=== PATIENT | male | born 1965 | race Two or more races ===

== ENCOUNTER 2021-05-02 10:26 | Inpatient (IN) | payer MEDICAID, OTHER ==
[~2021-05-02] VITALS: Ht 167.6 cm; Wt 76.2 kg
[2021-05-02 11:28] LABS: Basophils # (auto) 0 10 ^3/uL (0-0.2); Basophils % (auto) 0.1 % (0.0-2.0); Eosinophils # (auto) 0 10 ^3/uL (0-0.8); Eosinophils % (auto) 0.1 % (0.0-7.0); Hematocrit 39.7 % (41.0-53.0); Hemoglobin 13.5 g/dL (13.5-17.5); Lymphocytes # (auto) 0.6 10 ^3/uL (0.4-5.4); Lymphocytes % (auto) 7.2 % (10.0-50.0); Mean Corpuscular Hemoglobin 31.8 pg (28.0-32.0); Mean Corpuscular Hgb Conc. 34.1 g/dL (32.0-36.0); Mean Corpuscular Volume 93.4 fL (80.0-100.0); Monocytes # (auto) 0.4 10 ^3/uL (0-1.3); Monocytes % (auto) 5.1 % (0.0-12.0); Neutrophils # (auto) 7.4 10 ^3/uL (1.6-8.6); Neutrophils % (auto) 87.5 % (37.0-80.0); Nucleated Red Blood Cells % 0.1 %; Red Blood Cells 4.24 10^6/uL (4.5-5.90); Red Cell Distribution Width 12.8 % (11.8-14.3); White Blood Cell 8.4 10^3/uL (4.4-10.8)
[2021-05-02 11:37] LABS: Lactic Acid w/Reflex 2.3 mmol/L (0.4-2.0)
[2021-05-02] MEDS ORDERED: CHOLECALCIFEROL (VITD3) 2,000 UNIT CAP/TAB PO ONE (14:00)
[2021-05-02] MEDS ORDERED: DexAMETHasone SOD PHOS 10MG/1ML VIAL INJ IV ONE (14:00)
[2021-05-02] MEDS ORDERED: ASCORBIC ACID 500 MG TAB PO ONE (14:00)
[2021-05-02] MEDS ORDERED: AZITHROMYCIN 500MG/ 250ML 250 ML IV ONE (14:00)
[2021-05-02] MEDS ORDERED: ZINC SULFATE 220mg CAP or TAB PO ONE (14:00)
[2021-05-02] MEDS ORDERED: cefTRIAXone 1GM/50ML D5W 50 ML IV ONE (14:00)
[2021-05-02] MEDS ORDERED: MORPHINE SULFATE INJECTION 2 MG/ML SYRG IV PRN (14:15)
[2021-05-02] MEDS ORDERED: NITROGLYCERIN 0.4 MG SL TAB SL PRN (14:15)
[2021-05-02 14:20] LABS: Albumin 2.2 g/dL (3.4-5.0); Anion Gap 11 (5-15); Blood Urea Nitrogen 27 mg/dL (7-18); Calcium 8.1 mg/dL (8.5-10.1); Carbon Dioxide 21 mmol/L (21-32); Chloride 99 mmol/L (98-107); Potassium 4.5 mmol/L (3.5-5.1); Sodium 131 mmol/L (136-145)
[2021-05-02 14:22] LABS: Alanine Aminotransferase 33 U/L (16-61); Aspartate Aminotransferase 29 U/L (15-37); BUN/Creatinine Ratio 20.3; GFR African American 71 mL/min; GFR Non-African American 59 mL/min
[2021-05-02 14:27] LABS: Alkaline Phosphatase 95 U/L (45-117); Bilirubin, Total 0.6 mg/dL (0.2-1.0); Total Protein 7.4 g/dL (6.4-8.2)
[2021-05-02 14:32] LABS: Glucose 441 mg/dL (74-106)
[2021-05-02] MEDS ORDERED: DEXTROSE (50%) 50ML SYRG IV PRN (14:45)
[2021-05-02] MEDS ORDERED: PROMETHAZINE HCL 25 MG/ML 1ML IV PRN (14:45)
[2021-05-02] MEDS ORDERED: INSULIN LANTUS (GLARGINE) 1 /0.01ml (100units/ml) SC ONE (14:45)
[2021-05-02] MEDS ORDERED: LACTULOSE 20Gm/30ML SOLN PO PRN (14:45)
[2021-05-02] MEDS ORDERED: traMADol HCL 50 MG TAB PO PRN (14:45)
[2021-05-02] MEDS: SODIUM CHLORIDE 0.9% 1,000 ML IV SCH (16:55)
[2021-05-02] MEDS: InsuLIN REG 1unit/0.01ml Soln (100units/ml) SC SCH ×3 (17:07→23:29)
[2021-05-02] MEDS: ACCU-CHEK COMFORT CURVE STRIP VI SCH ×3 (17:09→23:28)
[2021-05-02] MEDS ORDERED: LABETALOL HCL 5 MG/ML 4ML SYRINGE IV ONE (17:15)
[2021-05-02 19:19] LABS: Urine Bacteria NONE SEEN /hpf (None Seen); Urine Blood Negative /uL (Negative); Urine Specific Gravity 1.037 (1.001-1.035); Urine WBC 1 /hpf (0 - 3)
[2021-05-02] MEDS: BUDESONIDE (INHALATION) 180 MCG IH IN SCH (22:00)
[2021-05-02] MEDS: FLORASTOR (S. BOULARDII) 250 MG CAP PO SCH (23:27)
[2021-05-02] MEDS: INSULIN LANTUS (GLARGINE) 1 /0.01ml (100units/ml) SC SCH (23:27)
[2021-05-02] MEDS: ENOXAPARIN SOD 40 MG/0.4 ML SYRINGE SC SCH (23:28)
[2021-05-02 23:31] VITALS: BP 135/80
[2021-05-03 00:05] VITALS: BP 149/98
[2021-05-03] MEDS ORDERED: PNEUMOCOCCAL VACC POLYS 25 MCG/0.5 ML VIAL IM ONE (00:30)
[2021-05-03] MEDS ORDERED: INFLUENZA QUAD 2020-2021 0.5 ML SYRG IM ONE (00:30)
[2021-05-03] MEDS: ACCU-CHEK COMFORT CURVE STRIP VI SCH ×6 (04:03→22:51)
[2021-05-03] MEDS: InsuLIN REG 1unit/0.01ml Soln (100units/ml) SC SCH ×6 (04:04→22:52)
[2021-05-03] MEDS: SODIUM CHLORIDE 0.9% 1,000 ML IV SCH (04:25)
[2021-05-03] MEDS: hydrALAZINE HCL 20 MG/ML VL IV PRN ×3 (04:59→22:53)
[2021-05-03 05:35] VITALS: BP 173/107
[2021-05-03 06:14] LABS: Basophils # (auto) 0 10 ^3/uL (0-0.2); Basophils % (auto) 0.4 % (0.0-2.0); Eosinophils # (auto) 0 10 ^3/uL (0-0.8); Eosinophils % (auto) 0.1 % (0.0-7.0); Hemoglobin 14.2 g/dL (13.5-17.5); Lymphocytes # (auto) 0.6 10 ^3/uL (0.4-5.4); Lymphocytes % (auto) 10.2 % (10.0-50.0); Mean Corpuscular Hemoglobin 32.5 pg (28.0-32.0); Mean Corpuscular Hgb Conc. 34.6 g/dL (32.0-36.0); Mean Corpuscular Volume 93.7 fL (80.0-100.0); Monocytes # (auto) 0.3 10 ^3/uL (0-1.3); Monocytes % (auto) 5.8 % (0.0-12.0); Neutrophils # (auto) 4.7 10 ^3/uL (1.6-8.6); Neutrophils % (auto) 83.5 % (37.0-80.0); Red Blood Cells 4.38 10^6/uL (4.5-5.90); Red Cell Distribution Width 13.1 % (11.8-14.3); White Blood Cell 5.6 10^3/uL (4.4-10.8)
[2021-05-03 06:29] LABS: Potassium 4.1 mmol/L (3.5-5.1)
[2021-05-03 06:37] LABS: Albumin 2.3 g/dL (3.4-5.0); BUN/Creatinine Ratio 25.7; Bilirubin, Total 0.5 mg/dL (0.2-1.0); Calcium 8.5 mg/dL (8.5-10.1); Total Protein 7.6 g/dL (6.4-8.2)
[2021-05-03] MEDS: DexAMETHasone SOD PHOS 10MG/1ML VIAL INJ IV SCH (08:27)
[2021-05-03] MEDS: cefTRIAXone 1GM/50ML D5W 50 ML IV SCH (08:27)
[2021-05-03] MEDS: ZINC SULFATE 220mg CAP or TAB PO SCH (08:28)
[2021-05-03] MEDS: AZITHROMYCIN 500MG/ 250ML 250 ML IV SCH (08:28)
[2021-05-03] MEDS: FLORASTOR (S. BOULARDII) 250 MG CAP PO SCH ×2 (08:28→22:48)
[2021-05-03] MEDS: ASCORBIC ACID 1,000 MG TAB PO SCH (08:29)
[2021-05-03] MEDS: ENOXAPARIN SOD 40 MG/0.4 ML SYRINGE SC SCH ×2 (08:29→22:48)
[2021-05-03] MEDS: CHOLECALCIFEROL (VITD3) 2,000 UNIT CAP/TAB PO SCH (08:29)
[2021-05-03] MEDS: INSULIN LANTUS (GLARGINE) 1 /0.01ml (100units/ml) SC SCH ×2 (08:39→22:51)
[2021-05-03 10:23] VITALS: BP 140/82
[2021-05-03] MEDS: BUDESONIDE (INHALATION) 180 MCG IH IN SCH ×2 (11:20→21:51)
[2021-05-03] MEDS: ALBUTEROL SULF HFA 90MCG INH 200DOSE IN PRN ×2 (11:20→21:51)
[2021-05-03 13:05] VITALS: BP 142/92
[2021-05-03] MEDS ORDERED: REMDESIVIR PER PHARMACY 0 ML IV SCH (16:00)
[2021-05-03] MEDS ORDERED: REMDESIVIR 200 MG in NS 210ml LOADING DOSE ADULT IV ONE (17:00)
[2021-05-03 22:00] VITALS: BP 162/94
[2021-05-04] MEDS: ACCU-CHEK COMFORT CURVE STRIP VI SCH ×6 (04:12→23:09)
[2021-05-04] MEDS: InsuLIN REG 1unit/0.01ml Soln (100units/ml) SC SCH ×6 (04:14→23:13)
[2021-05-04 04:51] VITALS: BP 125/78
[2021-05-04 05:20] VITALS: BP 125/78
[2021-05-04 05:55] LABS: Basophils # (auto) 0 10 ^3/uL (0-0.2); Basophils % (auto) 0.1 % (0.0-2.0); Eosinophils # (auto) 0 10 ^3/uL (0-0.8); Hematocrit 37.7 % (41.0-53.0); Hemoglobin 13.3 g/dL (13.5-17.5); Lymphocytes # (auto) 0.6 10 ^3/uL (0.4-5.4); Lymphocytes % (auto) 6.4 % (10.0-50.0); Mean Corpuscular Hemoglobin 32.8 pg (28.0-32.0); Mean Corpuscular Hgb Conc. 35.3 g/dL (32.0-36.0); Mean Corpuscular Volume 92.9 fL (80.0-100.0); Monocytes # (auto) 0.5 10 ^3/uL (0-1.3); Monocytes % (auto) 5.4 % (0.0-12.0); Neutrophils # (auto) 8.5 10 ^3/uL (1.6-8.6); Neutrophils % (auto) 88.1 % (37.0-80.0); Nucleated Red Blood Cells % 0.1 %; Red Blood Cells 4.05 10^6/uL (4.5-5.90); Red Cell Distribution Width 12.8 % (11.8-14.3); White Blood Cell 9.7 10^3/uL (4.4-10.8)
[2021-05-04] MEDS: ALBUTEROL SULF HFA 90MCG INH 200DOSE IN PRN ×2 (06:25→20:14)
[2021-05-04] MEDS: BUDESONIDE (INHALATION) 180 MCG IH IN SCH ×2 (06:25→20:14)
[2021-05-04 06:42] LABS: Chloride 109 mmol/L (98-107); Potassium 3.9 mmol/L (3.5-5.1); Sodium 138 mmol/L (136-145)
[2021-05-04 06:46] LABS: Alanine Aminotransferase 33 U/L (16-61); Anion Gap 9 (5-15); Aspartate Aminotransferase 30 U/L (15-37); BUN/Creatinine Ratio 27.1; Blood Urea Nitrogen 26 mg/dL (7-18); Calcium 8.2 mg/dL (8.5-10.1); Carbon Dioxide 20 mmol/L (21-32); GFR African American 104 mL/min; GFR Non-African American 86 mL/min; Glucose 135 mg/dL (74-106)
[2021-05-04 06:49] LABS: Alkaline Phosphatase 89 U/L (45-117); Bilirubin, Total 0.3 mg/dL (0.2-1.0); Total Protein 6.8 g/dL (6.4-8.2)
[2021-05-04] MEDS: INSULIN LANTUS (GLARGINE) 1 /0.01ml (100units/ml) SC SCH ×2 (08:00→23:09)
[2021-05-04] MEDS: AZITHROMYCIN 500MG/ 250ML 250 ML IV SCH (08:06)
[2021-05-04] MEDS: DexAMETHasone SOD PHOS 10MG/1ML VIAL INJ IV SCH (08:06)
[2021-05-04] MEDS: cefTRIAXone 1GM/50ML D5W 50 ML IV SCH (08:06)
[2021-05-04] MEDS: ASCORBIC ACID 1,000 MG TAB PO SCH (08:07)
[2021-05-04] MEDS: ZINC SULFATE 220mg CAP or TAB PO SCH (08:07)
[2021-05-04] MEDS: FLORASTOR (S. BOULARDII) 250 MG CAP PO SCH ×2 (08:07→22:05)
[2021-05-04] MEDS: CHOLECALCIFEROL (VITD3) 2,000 UNIT CAP/TAB PO SCH (08:08)
[2021-05-04] MEDS: ENOXAPARIN SOD 40 MG/0.4 ML SYRINGE SC SCH ×2 (08:08→22:16)
[2021-05-04 09:00] VITALS: BP 149/88
[2021-05-04 13:00] VITALS: BP 154/95
[2021-05-04] MEDS: hydrALAZINE HCL 20 MG/ML VL IV PRN (15:18)
[2021-05-04] MEDS: REMDESIVIR 100mg 100 MG in SODIUM CHL 0.9% 230 ML IV SCH (16:53)
[2021-05-04 17:00] VITALS: BP 149/99
[2021-05-04] MEDS ORDERED: METOPROLOL TARTRATE 25 MG TAB PO ONE (18:00)
[2021-05-04 22:00] VITALS: BP 120/73
[2021-05-04] MEDS: ACETAMINOPHEN 500 MG TAB PO PRN (22:15)
[2021-05-04] MEDS: METOPROLOL TARTRATE 25 MG TAB PO SCH (22:17)
[2021-05-05] MEDS: ACCU-CHEK COMFORT CURVE STRIP VI SCH ×6 (04:00→23:13)
[2021-05-05] MEDS: InsuLIN REG 1unit/0.01ml Soln (100units/ml) SC SCH ×6 (04:00→23:11)
[2021-05-05 05:31] VITALS: BP 146/88
[2021-05-05] MEDS: ALBUTEROL SULF HFA 90MCG INH 200DOSE IN PRN ×2 (06:24→21:09)
[2021-05-05] MEDS: BUDESONIDE (INHALATION) 180 MCG IH IN SCH ×2 (06:24→21:09)
[2021-05-05] MEDS: ACETAMINOPHEN 500 MG TAB PO PRN ×2 (07:00→22:01)
[2021-05-05 07:10] LABS: Potassium 3.5 mmol/L (3.5-5.1)
[2021-05-05 07:14] LABS: Calcium 8.5 mg/dL (8.5-10.1)
[2021-05-05 07:21] LABS: Bilirubin, Total 0.4 mg/dL (0.2-1.0); Total Protein 6.5 g/dL (6.4-8.2)
[2021-05-05] MEDS: INSULIN LANTUS (GLARGINE) 1 /0.01ml (100units/ml) SC SCH ×2 (07:51→23:10)
[2021-05-05] MEDS: AZITHROMYCIN 500MG/ 250ML 250 ML IV SCH (07:59)
[2021-05-05] MEDS: cefTRIAXone 1GM/50ML D5W 50 ML IV SCH (07:59)
[2021-05-05] MEDS: DexAMETHasone SOD PHOS 10MG/1ML VIAL INJ IV SCH (07:59)
[2021-05-05] MEDS: CHOLECALCIFEROL (VITD3) 2,000 UNIT CAP/TAB PO SCH (08:00)
[2021-05-05] MEDS: ASCORBIC ACID 1,000 MG TAB PO SCH (08:00)
[2021-05-05] MEDS: ZINC SULFATE 220mg CAP or TAB PO SCH (08:00)
[2021-05-05] MEDS: FLORASTOR (S. BOULARDII) 250 MG CAP PO SCH ×2 (08:00→21:57)
[2021-05-05] MEDS: ENOXAPARIN SOD 40 MG/0.4 ML SYRINGE SC SCH ×2 (08:01→21:57)
[2021-05-05] MEDS: METOPROLOL TARTRATE 25 MG TAB PO SCH ×2 (08:16→22:00)
[2021-05-05 09:00] VITALS: BP 139/95
[2021-05-05] MEDS ORDERED: FUROSEMIDE 20 MG/2 ML VIAL IV ONE (12:45)
[2021-05-05] MEDS ORDERED: POTASSIUM CHL 20 Meq TABLET PO ONE (12:45)
[2021-05-05 13:00] VITALS: BP 167/91
[2021-05-05] MEDS: hydrALAZINE HCL 20 MG/ML VL IV PRN (14:49)
[2021-05-05] MEDS: REMDESIVIR 100mg 100 MG in SODIUM CHL 0.9% 230 ML IV SCH (15:21)
[2021-05-05 16:30] VITALS: BP 160/88
[2021-05-05] MEDS: FAMOTIDINE 20 MG TAB PO SCH (21:57)
[2021-05-05 22:00] VITALS: BP 122/65
[2021-05-06] MEDS: InsuLIN REG 1unit/0.01ml Soln (100units/ml) SC SCH ×5 (04:00→23:00)
[2021-05-06] MEDS: ACCU-CHEK COMFORT CURVE STRIP VI SCH ×5 (04:00→23:00)
[2021-05-06 05:00] VITALS: BP 153/95
[2021-05-06 05:40] LABS: Basophils # (auto) 0 10 ^3/uL (0-0.2); Basophils % (auto) 0.1 % (0.0-2.0); Eosinophils # (auto) 0 10 ^3/uL (0-0.8); Eosinophils % (auto) 0.3 % (0.0-7.0); Hematocrit 42.2 % (41.0-53.0); Hemoglobin 14.7 g/dL (13.5-17.5); Lymphocytes # (auto) 0.9 10 ^3/uL (0.4-5.4); Lymphocytes % (auto) 9.5 % (10.0-50.0); Mean Corpuscular Hemoglobin 32.6 pg (28.0-32.0); Mean Corpuscular Hgb Conc. 34.9 g/dL (32.0-36.0); Mean Corpuscular Volume 93.5 fL (80.0-100.0); Monocytes # (auto) 0.5 10 ^3/uL (0-1.3); Monocytes % (auto) 5.3 % (0.0-12.0); Neutrophils # (auto) 8.3 10 ^3/uL (1.6-8.6); Neutrophils % (auto) 84.8 % (37.0-80.0); Nucleated Red Blood Cells % 0.1 %; Red Blood Cells 4.51 10^6/uL (4.5-5.90); Red Cell Distribution Width 13.1 % (11.8-14.3); White Blood Cell 9.8 10^3/uL (4.4-10.8)
[2021-05-06 05:53] LABS: Lactic Acid w/Reflex 4.6 mmol/L (0.4-2.0)
[2021-05-06 06:05] LABS: INR 1.1 (0.9-1.15)
[2021-05-06] MEDS: BUDESONIDE (INHALATION) 180 MCG IH IN SCH ×2 (06:05→21:19)
[2021-05-06] MEDS: ALBUTEROL SULF HFA 90MCG INH 200DOSE IN PRN ×2 (06:05→21:19)
[2021-05-06 06:20] LABS: Albumin 2.3 g/dL (3.4-5.0); BUN/Creatinine Ratio 22.3; Bilirubin, Total 0.4 mg/dL (0.2-1.0); CRP High Sensitivity 2.93 mg/dL (< 0.3); Calcium 8.6 mg/dL (8.5-10.1); Magnesium 2.5 mg/dL (1.6-2.6); Total Protein 6.7 g/dL (6.4-8.2)
[2021-05-06 06:21] LABS: Cholesterol 127 mg/dL (< 200); HDL Cholesterol 26 mg/dL (40-59); LDL Cholesterol 87 mg/dL (< 100); Triglycerides 80 mg/dL (< 150)
[2021-05-06 09:00] VITALS: BP 156/88
[2021-05-06] MEDS: DexAMETHasone SOD PHOS 10MG/1ML VIAL INJ IV SCH (10:10)
[2021-05-06] MEDS: cefTRIAXone 1GM/50ML D5W 50 ML IV SCH (10:10)
[2021-05-06] MEDS: FUROSEMIDE 20 MG/2 ML VIAL IV SCH (10:11)
[2021-05-06] MEDS: ENOXAPARIN SOD 40 MG/0.4 ML SYRINGE SC SCH ×2 (10:12→22:00)
[2021-05-06] MEDS: INSULIN LANTUS (GLARGINE) 1 /0.01ml (100units/ml) SC SCH (10:12)
[2021-05-06] MEDS: FLORASTOR (S. BOULARDII) 250 MG CAP PO SCH ×2 (10:13→23:53)
[2021-05-06] MEDS: ZINC SULFATE 220mg CAP or TAB PO SCH (10:13)
[2021-05-06] MEDS: ASCORBIC ACID 1,000 MG TAB PO SCH (10:13)
[2021-05-06] MEDS: POTASSIUM CHL 10 Meq TABLET PO SCH (10:13)
[2021-05-06] MEDS: METOPROLOL TARTRATE 25 MG TAB PO SCH ×2 (10:14→23:53)
[2021-05-06] MEDS: FAMOTIDINE 20 MG TAB PO SCH ×2 (10:14→23:53)
[2021-05-06] MEDS: CHOLECALCIFEROL (VITD3) 2,000 UNIT CAP/TAB PO SCH (10:15)
[2021-05-06] MEDS: ACETAMINOPHEN 500 MG TAB PO PRN (10:16)
[2021-05-06] MEDS: AZITHROMYCIN 500MG/ 250ML 250 ML IV SCH (11:00)
[2021-05-06 13:00] VITALS: BP 136/93
[2021-05-06] MEDS: REMDESIVIR 100mg 100 MG in SODIUM CHL 0.9% 230 ML IV SCH (15:15)
[2021-05-06] MEDS ORDERED: DEXTROSE (50%) 50ML SYRG IV PRN (16:15)
[2021-05-06] MEDS ORDERED: IOHEXOL 350 MG/ML 100ML IJ ONE ×2 (16:21→18:44)
[2021-05-06 17:03] VITALS: BP 142/91
[2021-05-06 22:00] VITALS: BP 120/71
[2021-05-06] MEDS ORDERED: TOCILIZUMAB 400 MG in SODIUM CHL 0.9% 80 ML IV SCH (22:00)
[2021-05-07] MEDS: ACETAMINOPHEN 500 MG TAB PO PRN (03:15)
[2021-05-07 05:00] VITALS: BP 107/69
[2021-05-07] MEDS: InsuLIN REG 1unit/0.01ml Soln (100units/ml) SC SCH ×4 (06:53→22:07)
[2021-05-07] MEDS: ACCU-CHEK COMFORT CURVE STRIP VI SCH ×4 (06:53→21:50)
[2021-05-07 07:24] LABS: Albumin 2.1 g/dL (3.4-5.0); BUN/Creatinine Ratio 30.2; Bilirubin, Total 0.4 mg/dL (0.2-1.0); CRP High Sensitivity 5.59 mg/dL (< 0.3); Calcium 8.4 mg/dL (8.5-10.1); Total Protein 6.5 g/dL (6.4-8.2)
[2021-05-07 08:54] VITALS: BP 126/76
[2021-05-07] MEDS: ALBUTEROL SULF HFA 90MCG INH 200DOSE IN PRN ×2 (09:47→20:10)
[2021-05-07] MEDS: BUDESONIDE (INHALATION) 180 MCG IH IN SCH ×2 (09:47→19:15)
[2021-05-07] MEDS: POTASSIUM CHL 10 Meq TABLET PO SCH (10:00)
[2021-05-07] MEDS: cefTRIAXone 1GM/50ML D5W 50 ML IV SCH (10:24)
[2021-05-07] MEDS: DexAMETHasone SOD PHOS 10MG/1ML VIAL INJ IV SCH (10:25)
[2021-05-07] MEDS: FUROSEMIDE 20 MG/2 ML VIAL IV SCH (10:26)
[2021-05-07] MEDS: ZINC SULFATE 220mg CAP or TAB PO SCH (10:27)
[2021-05-07] MEDS: FLORASTOR (S. BOULARDII) 250 MG CAP PO SCH ×2 (10:27→21:50)
[2021-05-07] MEDS: FAMOTIDINE 20 MG TAB PO SCH ×2 (10:28→21:50)
[2021-05-07] MEDS: ASCORBIC ACID 1,000 MG TAB PO SCH (10:28)
[2021-05-07] MEDS: CHOLECALCIFEROL (VITD3) 2,000 UNIT CAP/TAB PO SCH (10:28)
[2021-05-07] MEDS: METOPROLOL TARTRATE 25 MG TAB PO SCH ×2 (10:34→22:05)
[2021-05-07] MEDS: ENOXAPARIN SOD 40 MG/0.4 ML SYRINGE SC SCH ×2 (10:35→21:50)
[2021-05-07] MEDS: AZITHROMYCIN 500MG/ 250ML 250 ML IV SCH (11:37)
[2021-05-07] MEDS ORDERED: InsuLIN REG 1unit/0.01ml Soln (100units/ml) SC ONE (12:15)
[2021-05-07 13:00] VITALS: BP 113/78
[2021-05-07] MEDS: REMDESIVIR 100mg 100 MG in SODIUM CHL 0.9% 230 ML IV SCH (15:39)
[2021-05-07 17:00] VITALS: BP 133/94
[2021-05-07 22:00] VITALS: BP 134/72
[2021-05-07] MEDS ORDERED: INSULIN LANTUS (GLARGINE) 1 /0.01ml (100units/ml) SC SCH ×2 (22:00)
[2021-05-08 05:00] VITALS: BP 107/67
[2021-05-08 06:02] LABS: Basophils # (auto) 0 10 ^3/uL (0-0.2); Basophils % (auto) 0.1 % (0.0-2.0); Eosinophils # (auto) 0 10 ^3/uL (0-0.8); Eosinophils % (auto) 0.4 % (0.0-7.0); Hematocrit 39.1 % (41.0-53.0); Hemoglobin 14.2 g/dL (13.5-17.5); Lymphocytes # (auto) 1.4 10 ^3/uL (0.4-5.4); Lymphocytes % (auto) 11.8 % (10.0-50.0); Mean Corpuscular Hemoglobin 33.1 pg (28.0-32.0); Mean Corpuscular Hgb Conc. 36.3 g/dL (32.0-36.0); Mean Corpuscular Volume 91.2 fL (80.0-100.0); Monocytes # (auto) 0.6 10 ^3/uL (0-1.3); Monocytes % (auto) 5.2 % (0.0-12.0); Neutrophils # (auto) 9.9 10 ^3/uL (1.6-8.6); Neutrophils % (auto) 82.5 % (37.0-80.0); Nucleated Red Blood Cells % 0.1 %; Red Blood Cells 4.28 10^6/uL (4.5-5.90); Red Cell Distribution Width 12.8 % (11.8-14.3)
[2021-05-08 06:09] LABS: BUN/Creatinine Ratio 37.8; Bilirubin, Total 0.4 mg/dL (0.2-1.0); CRP High Sensitivity 5.9 mg/dL (< 0.3); Calcium 8.6 mg/dL (8.5-10.1); Magnesium 2.4 mg/dL (1.6-2.6); Total Protein 6.6 g/dL (6.4-8.2)
[2021-05-08] MEDS: ALBUTEROL SULF HFA 90MCG INH 200DOSE IN PRN (06:46)
[2021-05-08] MEDS: BUDESONIDE (INHALATION) 180 MCG IH IN SCH ×2 (06:46→21:40)
[2021-05-08] MEDS: InsuLIN REG 1unit/0.01ml Soln (100units/ml) SC SCH ×4 (07:00→22:30)
[2021-05-08] MEDS: ACCU-CHEK COMFORT CURVE STRIP VI SCH ×4 (08:43→21:59)
[2021-05-08 09:00] VITALS: BP 121/70
[2021-05-08] MEDS: cefTRIAXone 1GM/50ML D5W 50 ML IV SCH (09:49)
[2021-05-08] MEDS: DexAMETHasone SOD PHOS 10MG/1ML VIAL INJ IV SCH (09:49)
[2021-05-08] MEDS: FUROSEMIDE 20 MG/2 ML VIAL IV SCH (09:49)
[2021-05-08] MEDS: CHOLECALCIFEROL (VITD3) 2,000 UNIT CAP/TAB PO SCH (09:50)
[2021-05-08] MEDS: METOPROLOL TARTRATE 25 MG TAB PO SCH ×2 (09:50→21:58)
[2021-05-08] MEDS: FLORASTOR (S. BOULARDII) 250 MG CAP PO SCH ×2 (09:50→21:57)
[2021-05-08] MEDS: ASCORBIC ACID 1,000 MG TAB PO SCH (09:50)
[2021-05-08] MEDS: FAMOTIDINE 20 MG TAB PO SCH ×2 (09:50→21:57)
[2021-05-08] MEDS: ZINC SULFATE 220mg CAP or TAB PO SCH (09:50)
[2021-05-08] MEDS: POTASSIUM CHL 10 Meq TABLET PO SCH (09:51)
[2021-05-08] MEDS: ENOXAPARIN SOD 40 MG/0.4 ML SYRINGE SC SCH ×2 (09:51→21:59)
[2021-05-08 13:00] VITALS: BP 132/86
[2021-05-08] MEDS ORDERED: TOCILIZUMAB 400 MG in SODIUM CHL 0.9% 80 ML IV ONE (15:00)
[2021-05-08 16:53] VITALS: BP 121/81
[2021-05-08 22:00] VITALS: BP 132/74
[2021-05-09 05:00] VITALS: BP 102/48
[2021-05-09] MEDS: InsuLIN REG 1unit/0.01ml Soln (100units/ml) SC SCH ×4 (06:25→20:18)
[2021-05-09] MEDS: ACCU-CHEK COMFORT CURVE STRIP VI SCH ×4 (06:25→20:17)
[2021-05-09] MEDS: INSULIN LANTUS (GLARGINE) 1 /0.01ml (100units/ml) SC SCH (06:32)
[2021-05-09] MEDS: ALBUTEROL SULF HFA 90MCG INH 200DOSE IN PRN ×2 (06:39→22:40)
[2021-05-09] MEDS: BUDESONIDE (INHALATION) 180 MCG IH IN SCH ×2 (06:39→22:00)
[2021-05-09 06:57] LABS: Basophils # (auto) 0 10 ^3/uL (0-0.2); Basophils % (auto) 0.3 % (0.0-2.0); Eosinophils # (auto) 0.1 10 ^3/uL (0-0.8); Eosinophils % (auto) 0.6 % (0.0-7.0); Hematocrit 40.1 % (41.0-53.0); Hemoglobin 13.9 g/dL (13.5-17.5); Lymphocytes % (auto) 9.7 % (10.0-50.0); Mean Corpuscular Hemoglobin 31.9 pg (28.0-32.0); Mean Corpuscular Hgb Conc. 34.7 g/dL (32.0-36.0); Mean Corpuscular Volume 91.8 fL (80.0-100.0); Monocytes # (auto) 0.5 10 ^3/uL (0-1.3); Monocytes % (auto) 4.6 % (0.0-12.0); Neutrophils # (auto) 8.5 10 ^3/uL (1.6-8.6); Neutrophils % (auto) 84.8 % (37.0-80.0); Red Blood Cells 4.37 10^6/uL (4.5-5.90); Red Cell Distribution Width 12.6 % (11.8-14.3); White Blood Cell 10.1 10^3/uL (4.4-10.8)
[2021-05-09 07:17] LABS: Albumin 2.1 g/dL (3.4-5.0); Calcium 8.7 mg/dL (8.5-10.1); Magnesium 2.3 mg/dL (1.6-2.6); Potassium 4.3 mmol/L (3.5-5.1)
[2021-05-09 07:29] LABS: BUN/Creatinine Ratio 34.1; Bilirubin, Total 0.4 mg/dL (0.2-1.0); CRP High Sensitivity 4.28 mg/dL (< 0.3); Total Protein 6.6 g/dL (6.4-8.2)
[2021-05-09 07:42] VITALS: BP 122/81
[2021-05-09 09:00] VITALS: BP_SYST 122; BP_SYST 128; BP_DIAS 75; BP_DIAS 81
[2021-05-09] MEDS: POTASSIUM CHL 10 Meq TABLET PO SCH (09:56)
[2021-05-09] MEDS: ZINC SULFATE 220mg CAP or TAB PO SCH (09:56)
[2021-05-09] MEDS: cefTRIAXone 1GM/50ML D5W 50 ML IV SCH (09:56)
[2021-05-09] MEDS: ASCORBIC ACID 1,000 MG TAB PO SCH (09:56)
[2021-05-09] MEDS: FAMOTIDINE 20 MG TAB PO SCH ×2 (09:56→22:00)
[2021-05-09] MEDS: FLORASTOR (S. BOULARDII) 250 MG CAP PO SCH ×2 (09:56→22:00)
[2021-05-09] MEDS: CHOLECALCIFEROL (VITD3) 2,000 UNIT CAP/TAB PO SCH (09:57)
[2021-05-09] MEDS: ENOXAPARIN SOD 40 MG/0.4 ML SYRINGE SC SCH ×2 (09:57→21:59)
[2021-05-09] MEDS ORDERED: TOCILIZUMAB 400 MG in SODIUM CHL 0.9% 80 ML IV ONE (10:00)
[2021-05-09] MEDS: METOPROLOL TARTRATE 25 MG TAB PO SCH ×2 (10:10→22:00)
[2021-05-09] MEDS: FUROSEMIDE 20 MG/2 ML VIAL IV SCH (10:11)
[2021-05-09] MEDS: DexAMETHasone SOD PHOS 10MG/1ML VIAL INJ IV SCH (12:00)
[2021-05-09 13:00] VITALS: BP 141/88
[2021-05-09 16:43] VITALS: BP 117/77
[2021-05-09] MEDS ORDERED: InsuLIN REG 1unit/0.01ml Soln (100units/ml) SC ONE (18:00)
[2021-05-09 22:00] VITALS: BP 100/69
[2021-05-10] MEDS: ACCU-CHEK COMFORT CURVE STRIP VI SCH ×7 (00:01→23:51)
[2021-05-10] MEDS: InsuLIN REG 1unit/0.01ml Soln (100units/ml) SC SCH ×7 (00:01→23:53)
[2021-05-10 05:00] VITALS: BP 109/85
[2021-05-10] MEDS: INSULIN LANTUS (GLARGINE) 1 /0.01ml (100units/ml) SC SCH (06:52)
[2021-05-10] MEDS: ACETAMINOPHEN 500 MG TAB PO PRN (06:55)
[2021-05-10 08:53] VITALS: BP 100/68
[2021-05-10] MEDS: cefTRIAXone 1GM/50ML D5W 50 ML IV SCH (09:18)
[2021-05-10] MEDS: DexAMETHasone SOD PHOS 10MG/1ML VIAL INJ IV SCH (09:18)
[2021-05-10] MEDS: ENOXAPARIN SOD 40 MG/0.4 ML SYRINGE SC SCH ×2 (09:18→21:33)
[2021-05-10] MEDS: ASCORBIC ACID 1,000 MG TAB PO SCH (09:19)
[2021-05-10] MEDS: FLORASTOR (S. BOULARDII) 250 MG CAP PO SCH ×2 (09:19→21:32)
[2021-05-10] MEDS: POTASSIUM CHL 10 Meq TABLET PO SCH (09:19)
[2021-05-10] MEDS: CHOLECALCIFEROL (VITD3) 2,000 UNIT CAP/TAB PO SCH (09:19)
[2021-05-10] MEDS: FAMOTIDINE 20 MG TAB PO SCH ×2 (09:20→21:33)
[2021-05-10] MEDS: ZINC SULFATE 220mg CAP or TAB PO SCH (09:20)
[2021-05-10] MEDS: METOPROLOL TARTRATE 25 MG TAB PO SCH ×2 (09:36→21:33)
[2021-05-10] MEDS: FUROSEMIDE 20 MG/2 ML VIAL IV SCH (09:36)
[2021-05-10] MEDS: ALBUTEROL SULF HFA 90MCG INH 200DOSE IN PRN ×2 (10:26→21:08)
[2021-05-10] MEDS: BUDESONIDE (INHALATION) 180 MCG IH IN SCH ×2 (10:26→21:08)
[2021-05-10 13:00] VITALS: BP 109/75
[2021-05-10 17:00] VITALS: BP 114/77
[2021-05-10] MEDS ORDERED: InsuLIN REG 1unit/0.01ml Soln (100units/ml) IV ONE (17:00)
[2021-05-10 21:38] VITALS: BP 117/75
[2021-05-11] MEDS: ACCU-CHEK COMFORT CURVE STRIP VI SCH ×5 (04:16→20:15)
[2021-05-11] MEDS: InsuLIN REG 1unit/0.01ml Soln (100units/ml) SC SCH ×5 (04:19→20:15)
[2021-05-11 04:55] VITALS: BP 123/89
[2021-05-11] MEDS: ALBUTEROL SULF HFA 90MCG INH 200DOSE IN PRN ×2 (06:28→20:25)
[2021-05-11] MEDS: BUDESONIDE (INHALATION) 180 MCG IH IN SCH ×2 (06:28→20:25)
[2021-05-11] MEDS: INSULIN LANTUS (GLARGINE) 1 /0.01ml (100units/ml) SC SCH (06:32)
[2021-05-11 09:00] VITALS: BP 115/78
[2021-05-11] MEDS: cefTRIAXone 1GM/50ML D5W 50 ML IV SCH (09:21)
[2021-05-11] MEDS: ZINC SULFATE 220mg CAP or TAB PO SCH (09:21)
[2021-05-11] MEDS: FLORASTOR (S. BOULARDII) 250 MG CAP PO SCH ×2 (09:22→21:35)
[2021-05-11] MEDS: POTASSIUM CHL 10 Meq TABLET PO SCH (09:22)
[2021-05-11] MEDS: FAMOTIDINE 20 MG TAB PO SCH ×2 (09:23→21:36)
[2021-05-11] MEDS: METOPROLOL TARTRATE 25 MG TAB PO SCH ×2 (09:23→21:35)
[2021-05-11] MEDS: ASCORBIC ACID 1,000 MG TAB PO SCH (09:23)
[2021-05-11] MEDS: CHOLECALCIFEROL (VITD3) 2,000 UNIT CAP/TAB PO SCH (09:24)
[2021-05-11] MEDS: ENOXAPARIN SOD 40 MG/0.4 ML SYRINGE SC SCH ×2 (09:24→21:36)
[2021-05-11] MEDS: FUROSEMIDE 20 MG/2 ML VIAL IV SCH (09:33)
[2021-05-11] MEDS ORDERED: DexAMETHasone SOD PHOS 10MG/1ML VIAL INJ IV ONE (10:30)
[2021-05-11 13:00] VITALS: BP 92/71
[2021-05-11 17:00] VITALS: BP 109/76
[2021-05-11 22:00] VITALS: BP 116/64
[2021-05-12] MEDS: ACCU-CHEK COMFORT CURVE STRIP VI SCH ×6 (00:07→20:07)
[2021-05-12] MEDS: InsuLIN REG 1unit/0.01ml Soln (100units/ml) SC SCH ×6 (00:07→20:06)
[2021-05-12] MEDS: ACETAMINOPHEN 500 MG TAB PO PRN (00:11)
[2021-05-12 05:00] VITALS: BP 95/66
[2021-05-12 05:35] LABS: Basophils # (auto) 0 10 ^3/uL (0-0.2); Basophils % (auto) 0.3 % (0.0-2.0); Eosinophils # (auto) 0.2 10 ^3/uL (0-0.8); Eosinophils % (auto) 3.2 % (0.0-7.0); Hematocrit 40.8 % (41.0-53.0); Hemoglobin 14.4 g/dL (13.5-17.5); Lymphocytes % (auto) 13.3 % (10.0-50.0); Mean Corpuscular Hemoglobin 32.5 pg (28.0-32.0); Mean Corpuscular Hgb Conc. 35.4 g/dL (32.0-36.0); Mean Corpuscular Volume 91.9 fL (80.0-100.0); Monocytes # (auto) 0.5 10 ^3/uL (0-1.3); Monocytes % (auto) 7.5 % (0.0-12.0); Neutrophils # (auto) 5.5 10 ^3/uL (1.6-8.6); Neutrophils % (auto) 75.7 % (37.0-80.0); Nucleated Red Blood Cells % 0.1 %; Red Blood Cells 4.44 10^6/uL (4.5-5.90); White Blood Cell 7.2 10^3/uL (4.4-10.8)
[2021-05-12 05:56] LABS: INR 0.99 (0.9-1.15)
[2021-05-12 06:11] LABS: Albumin 2.1 g/dL (3.4-5.0); Calcium 8.5 mg/dL (8.5-10.1); Magnesium 2.2 mg/dL (1.6-2.6); Potassium 4.2 mmol/L (3.5-5.1)
[2021-05-12 06:16] LABS: BUN/Creatinine Ratio 38.5; Bilirubin, Total 0.4 mg/dL (0.2-1.0); CRP High Sensitivity 0.84 mg/dL (< 0.3); Total Protein 6.4 g/dL (6.4-8.2)
[2021-05-12] MEDS: INSULIN LANTUS (GLARGINE) 1 /0.01ml (100units/ml) SC SCH (06:38)
[2021-05-12 09:00] VITALS: BP 107/74
[2021-05-12] MEDS: cefTRIAXone 1GM/50ML D5W 50 ML IV SCH (09:01)
[2021-05-12] MEDS: POTASSIUM CHL 10 Meq TABLET PO SCH (09:01)
[2021-05-12] MEDS: DexAMETHasone SOD PHOS 10MG/1ML VIAL INJ IV SCH (09:01)
[2021-05-12] MEDS: FAMOTIDINE 20 MG TAB PO SCH ×2 (09:01→21:01)
[2021-05-12] MEDS: ZINC SULFATE 220mg CAP or TAB PO SCH (09:01)
[2021-05-12] MEDS: FLORASTOR (S. BOULARDII) 250 MG CAP PO SCH ×2 (09:01→21:01)
[2021-05-12] MEDS: ENOXAPARIN SOD 40 MG/0.4 ML SYRINGE SC SCH ×2 (09:02→21:01)
[2021-05-12] MEDS: CHOLECALCIFEROL (VITD3) 2,000 UNIT CAP/TAB PO SCH (09:02)
[2021-05-12] MEDS: ASCORBIC ACID 1,000 MG TAB PO SCH (09:02)
[2021-05-12] MEDS: METOPROLOL TARTRATE 25 MG TAB PO SCH ×2 (09:04→22:00)
[2021-05-12] MEDS: ALBUTEROL SULF HFA 90MCG INH 200DOSE IN PRN ×2 (09:11→21:43)
[2021-05-12] MEDS: BUDESONIDE (INHALATION) 180 MCG IH IN SCH ×2 (09:11→21:42)
[2021-05-12] MEDS: FUROSEMIDE 20 MG/2 ML VIAL IV SCH (09:28)
[2021-05-12] MEDS: SALINE 0.65 % NASAL SPRAY 45ML BOTTLE EACHNOSTRI SCH ×3 (12:00→21:01)
[2021-05-12 13:00] VITALS: BP 102/69
[2021-05-12 17:00] VITALS: BP 149/74
[2021-05-12 22:00] VITALS: BP 95/62
[2021-05-12 23:53] VITALS: BP 95/62
[2021-05-13] MEDS: ACCU-CHEK COMFORT CURVE STRIP VI SCH ×6 (00:03→20:39)
[2021-05-13] MEDS: InsuLIN REG 1unit/0.01ml Soln (100units/ml) SC SCH ×6 (00:07→20:40)
[2021-05-13 05:00] VITALS: BP 122/86
[2021-05-13] MEDS: SALINE 0.65 % NASAL SPRAY 45ML BOTTLE EACHNOSTRI SCH ×4 (06:00→22:00)
[2021-05-13] MEDS: ALBUTEROL SULF HFA 90MCG INH 200DOSE IN PRN ×2 (06:46→22:59)
[2021-05-13] MEDS: BUDESONIDE (INHALATION) 180 MCG IH IN SCH ×2 (06:46→20:47)
[2021-05-13] MEDS: INSULIN LANTUS (GLARGINE) 1 /0.01ml (100units/ml) SC SCH (06:52)
[2021-05-13 09:00] VITALS: BP 126/62
[2021-05-13] MEDS: cefTRIAXone 1GM/50ML D5W 50 ML IV SCH (09:41)
[2021-05-13] MEDS: FLORASTOR (S. BOULARDII) 250 MG CAP PO SCH ×2 (09:42→20:45)
[2021-05-13] MEDS: ZINC SULFATE 220mg CAP or TAB PO SCH (09:42)
[2021-05-13] MEDS: POTASSIUM CHL 10 Meq TABLET PO SCH (09:42)
[2021-05-13] MEDS: DexAMETHasone SOD PHOS 10MG/1ML VIAL INJ IV SCH (09:42)
[2021-05-13] MEDS: CHOLECALCIFEROL (VITD3) 2,000 UNIT CAP/TAB PO SCH (09:43)
[2021-05-13] MEDS: ENOXAPARIN SOD 40 MG/0.4 ML SYRINGE SC SCH ×2 (09:43→20:44)
[2021-05-13] MEDS: ASCORBIC ACID 1,000 MG TAB PO SCH (09:43)
[2021-05-13] MEDS: FAMOTIDINE 20 MG TAB PO SCH ×2 (09:43→20:45)
[2021-05-13] MEDS: METOPROLOL TARTRATE 25 MG TAB PO SCH ×2 (09:44→20:53)
[2021-05-13] MEDS: FUROSEMIDE 20 MG/2 ML VIAL IV SCH (09:45)
[2021-05-13 13:00] VITALS: BP 97/69
[2021-05-13 17:00] VITALS: BP 111/71
[2021-05-13 22:00] VITALS: BP 104/58
[2021-05-14] MEDS: ACCU-CHEK COMFORT CURVE STRIP VI SCH ×7 (00:24→23:46)
[2021-05-14] MEDS: InsuLIN REG 1unit/0.01ml Soln (100units/ml) SC SCH ×7 (00:25→23:46)
[2021-05-14 05:00] VITALS: BP 102/69
[2021-05-14] MEDS: SALINE 0.65 % NASAL SPRAY 45ML BOTTLE EACHNOSTRI SCH ×4 (06:00→22:00)
[2021-05-14 06:25] LABS: Potassium 3.8 mmol/L (3.5-5.1)
[2021-05-14 06:39] LABS: CRP High Sensitivity 0.34 mg/dL (< 0.3); Magnesium 2.3 mg/dL (1.6-2.6)
[2021-05-14] MEDS: BUDESONIDE (INHALATION) 180 MCG IH IN SCH ×2 (06:51→19:12)
[2021-05-14] MEDS: ALBUTEROL SULF HFA 90MCG INH 200DOSE IN PRN ×2 (06:51→19:12)
[2021-05-14] MEDS: INSULIN LANTUS (GLARGINE) 1 /0.01ml (100units/ml) SC SCH (07:00)
[2021-05-14 08:32] VITALS: BP 106/72
[2021-05-14] MEDS: FUROSEMIDE 20 MG/2 ML VIAL IV SCH (08:52)
[2021-05-14] MEDS: DexAMETHasone SOD PHOS 10MG/1ML VIAL INJ IV SCH (08:52)
[2021-05-14] MEDS: cefTRIAXone 1GM/50ML D5W 50 ML IV SCH (08:52)
[2021-05-14] MEDS: FLORASTOR (S. BOULARDII) 250 MG CAP PO SCH ×2 (08:53→22:00)
[2021-05-14] MEDS: METOPROLOL TARTRATE 25 MG TAB PO SCH ×2 (08:56→22:00)
[2021-05-14] MEDS: ZINC SULFATE 220mg CAP or TAB PO SCH (08:56)
[2021-05-14] MEDS: POTASSIUM CHL 10 Meq TABLET PO SCH (08:56)
[2021-05-14] MEDS: FAMOTIDINE 20 MG TAB PO SCH ×2 (08:57→22:00)
[2021-05-14] MEDS: ASCORBIC ACID 1,000 MG TAB PO SCH (08:57)
[2021-05-14] MEDS: ENOXAPARIN SOD 40 MG/0.4 ML SYRINGE SC SCH ×2 (08:58→22:00)
[2021-05-14] MEDS: CHOLECALCIFEROL (VITD3) 2,000 UNIT CAP/TAB PO SCH (08:58)
[2021-05-14 12:30] VITALS: BP 100/70
[2021-05-14 16:44] VITALS: BP 99/53
[2021-05-14 22:00] VITALS: BP 98/60
[2021-05-14] MEDS: DOXYCYCLINE 100 MG TAB/CAP PO SCH (22:00)
[2021-05-15] MEDS: ACCU-CHEK COMFORT CURVE STRIP VI SCH ×3 (04:00→12:32)
[2021-05-15] MEDS: InsuLIN REG 1unit/0.01ml Soln (100units/ml) SC SCH ×3 (04:11→12:32)
[2021-05-15 05:00] VITALS: BP 101/66
[2021-05-15] MEDS: SALINE 0.65 % NASAL SPRAY 45ML BOTTLE EACHNOSTRI SCH ×2 (06:00→12:31)
[2021-05-15] MEDS: BUDESONIDE (INHALATION) 180 MCG IH IN SCH (06:23)
[2021-05-15] MEDS: ALBUTEROL SULF HFA 90MCG INH 200DOSE IN PRN (06:23)
[2021-05-15] MEDS: INSULIN LANTUS (GLARGINE) 1 /0.01ml (100units/ml) SC SCH (06:34)
[2021-05-15 08:00] VITALS: BP 107/83
[2021-05-15 09:26] VITALS: BP 107/83
[2021-05-15] MEDS: DexAMETHasone SOD PHOS 10MG/1ML VIAL INJ IV SCH (09:28)
[2021-05-15] MEDS: ZINC SULFATE 220mg CAP or TAB PO SCH (09:29)
[2021-05-15] MEDS: FLORASTOR (S. BOULARDII) 250 MG CAP PO SCH (09:29)
[2021-05-15] MEDS: FUROSEMIDE 20 MG/2 ML VIAL IV SCH (09:29)
[2021-05-15] MEDS: ASCORBIC ACID 1,000 MG TAB PO SCH (09:30)
[2021-05-15] MEDS: METOPROLOL TARTRATE 25 MG TAB PO SCH (09:30)
[2021-05-15] MEDS: POTASSIUM CHL 10 Meq TABLET PO SCH (09:30)
[2021-05-15] MEDS: FAMOTIDINE 20 MG TAB PO SCH (09:30)
[2021-05-15] MEDS: DOXYCYCLINE 100 MG TAB/CAP PO SCH (09:30)
[2021-05-15] MEDS: ENOXAPARIN SOD 40 MG/0.4 ML SYRINGE SC SCH (09:31)
[2021-05-15] MEDS: CHOLECALCIFEROL (VITD3) 2,000 UNIT CAP/TAB PO SCH (09:31)
[2021-05-15] MEDS ORDERED: ASCO10003 PO (11:23)
[2021-05-15] MEDS ORDERED: INSLANTI SC (11:23)
[2021-05-15] MEDS ORDERED: CHOL20007 PO (11:23)
[2021-05-15] MEDS ORDERED: FAMO20TA10 PO (11:23)
[2021-05-15] MEDS ORDERED: ZINC220T6 PO (11:23)
[2021-05-15] MEDS ORDERED: ALBUAER3 IN (11:23)
[2021-05-15] MEDS ORDERED: ASPI-378 PO (11:23)
[2021-05-15] MEDS ORDERED: DOXY-286 PO (11:23)
[2021-05-15] MEDS ORDERED: DEX4T PO (11:23)
[2021-05-15] MEDS ORDERED: LISI20TA28 PO (11:23)
[2021-05-15] MEDS ORDERED: BUDE2SUS3 IN (11:23)
[2021-05-15 12:25] VITALS: BP 102/76
== END 2021-05-15 17:00 | disposition home or self-care (01) | DRG 720 ==
LOC: ER 10:26 → TELE 14:11 → TELE-EAST 22:35
PROVIDERS: ADMIT Internal Medicine; ATTEND Internal Medicine
PROC: XW033E5 Introduction of Remdesivir Anti-infective into Peripheral Vein, Percutaneous Approach, New Technology Group 5 (ICD-10-PCS; principal; 2021-05-03)
PROC: XW033H5 Introduction of Tocilizumab into Peripheral Vein, Percutaneous Approach, New Technology Group 5 (ICD-10-PCS; 2021-05-08)
DX: A41.89 Other specified sepsis (principal); J96.01 Acute respiratory failure with hypoxia; J12.82 Pneumonia due to coronavirus disease 2019; N17.0 Acute kidney failure with tubular necrosis; U07.1 COVID-19; D89.839 Cytokine release syndrome, grade unspecified; E11.649 Type 2 diabetes mellitus with hypoglycemia without coma; E11.22 Type 2 diabetes mellitus with diabetic chronic kidney disease; N18.9 Chronic kidney disease, unspecified; I12.9 Hypertensive chronic kidney disease with stage 1 through stage 4 chronic kidney disease, or unspecified chronic kidney disease; E11.21 Type 2 diabetes mellitus with diabetic nephropathy; E11.65 Type 2 diabetes mellitus with hyperglycemia; E78.5 Hyperlipidemia, unspecified; Z89.422 Acquired absence of other left toe(s)
CPT/HCPCS: 36415; 36600; 71045; 71275; 80053; 80061; 81001; 82306; 82728; 82805; 82962; 83036; 83605; 83615; 83735; 84132; 84484; 85025; 85379; 85610; 86141; 87040; 87426; 93005; 93970; 94640; 96365; 96375; G0378; J0696; J1100; J1815; J3490

== ENCOUNTER 2021-05-19 12:42 | Emergency (ER) | payer SELFPAY ==
[~2021-05-19] VITALS: Ht 180.3 cm; Wt 63.5 kg
[~2021-05-19 12:42] MED LIST: ALBUAER3 IN; ASCO10003 PO; ASPI-378 PO; BUDE2SUS3 IN; CHOL20007 PO; DEX4T PO; DOXY-286 PO; FAMO20TA10 PO; INSLANTI SC; LISI20TA28 PO; ZINC220T6 PO
[2021-05-19] MEDS ORDERED: SODIUM CHLORIDE 0.9% 1,000 ML IV ONE ×2 (13:15)
[2021-05-19 13:49] LABS: Basophils # (auto) 0.1 10 ^3/uL (0-0.2); Basophils % (auto) 0.7 % (0.0-2.0); Eosinophils # (auto) 0 10 ^3/uL (0-0.8); Eosinophils % (auto) 0.5 % (0.0-7.0); Hematocrit 41.5 % (41.0-53.0); Hemoglobin 14.1 g/dL (13.5-17.5); Lymphocytes # (auto) 0.5 10 ^3/uL (0.4-5.4); Lymphocytes % (auto) 6.9 % (10.0-50.0); Monocytes # (auto) 0.2 10 ^3/uL (0-1.3); Monocytes % (auto) 2.7 % (0.0-12.0); Neutrophils # (auto) 6.6 10 ^3/uL (1.6-8.6); Neutrophils % (auto) 89.2 % (37.0-80.0); Red Blood Cells 4.42 10^6/uL (4.5-5.90); White Blood Cell 7.4 10^3/uL (4.4-10.8)
[2021-05-19 14:10] LABS: Albumin 2.9 g/dL (3.4-5.0); Anion Gap 10 (5-15); Blood Urea Nitrogen 36 mg/dL (7-18); Calcium 8.7 mg/dL (8.5-10.1); Carbon Dioxide 25 mmol/L (21-32); Chloride 100 mmol/L (98-107); Potassium 4.9 mmol/L (3.5-5.1); Sodium 135 mmol/L (136-145)
[2021-05-19 14:16] LABS: Alanine Aminotransferase 62 U/L (16-61); Alkaline Phosphatase 84 U/L (45-117); Aspartate Aminotransferase 17 U/L (15-37); BUN/Creatinine Ratio 27.9; Bilirubin, Total 0.6 mg/dL (0.2-1.0); CRP High Sensitivity 0.39 mg/dL (< 0.3); GFR African American 74 mL/min; GFR Non-African American 61 mL/min; Total Protein 6.8 g/dL (6.4-8.2)
[2021-05-19 14:41] LABS: Glucose 469 mg/dL (74-106)
[2021-05-19] MEDS ORDERED: InsuLIN REG 1unit/0.01ml Soln (100units/ml) IV ONE ×2 (15:30→17:45)
[2021-05-19 16:18] VITALS: BP 134/92
== END 2021-05-19 18:00 | disposition home or self-care (01) ==
LOC: ER 12:42
DX: E11.65 Type 2 diabetes mellitus with hyperglycemia (principal); R06.03 Acute respiratory distress; E78.5 Hyperlipidemia, unspecified; Z79.899 Other long term (current) drug therapy
CPT/HCPCS: 36415; 71045; 80053; 82728; 82962; 83880; 84484; 85025; 86141; 96361; 96374; 96376; 99285; J7030